=== PATIENT | male | born 1940 | race Caucasian/White ===

== ENCOUNTER 2017-10-04 00:50 | Emergency (ER) | payer OTHER ==
[2017-10-04] MEDS ORDERED: IOPAMIDOL (ISOVUE 370) 100 ML BTL IV ONE (00:57)
--- NOTE | 2017-10-04 01:07 | CPEKG ---
Heart Rate: 64 RR Interval: 938 P-R Interval: 336 QRSD Interval: 192 QT Interval: 532 QTC Interval: 549 P [place]: 0 QRS [place]: -68 T Wave [place]: 96 EKG Severity - ABNORMAL ECG - EKG Impression: VENTRICULAR-PACED RHYTHM Electronically Signed By: Brad Almaraz 04-Oct-2017 06:39:21
[2017-10-04 01:10] LABS: INR 1.13 (0.83-1.16); PROTIME(PATIENT) 14.7 SEC (12.0-15.0)
[2017-10-04 01:18] LABS: PLATELET COUNT 117 10^3/uL (150-400)
[2017-10-04] MEDS ORDERED: NS 1,000 ML IV ONE (01:44)
[2017-10-04 01:57] VITALS: RESP 16
--- NOTE | 2017-10-04 03:06 | EDPHY ---
H & P Stated Complaint: stroke alert / AMS Time Seen by Provider: 10/04/17 01:00 HPI/ROS: Chief Complaint: Altered mental status HPI: 76-year-old male who is a resident of [facility] facility. Patient called to the nursing staff at midnight to help going to the bathroom. They found him to be confused and had some difficulty walking to the bathroom. They called EMS. On EMS arrival they noted that he was a bit sleepy and there is some question of some facial droop. A stroke alert was called. Patient has a history of alcoholic liver disease, type 2 diabetes, chronic pain. He was last seen normal at 10:00 p.m. when he went to bed. He did get his nightly gabapentin. He does take daily tramadol but documentation indicates his last Tylenol was at 3:44 p.m.. No recent illness. No fevers or chills. No cough. On presentation the patient is awake and alert and answering questions and following all commands. He is currently complaining of feeling a bit dry in the mouth and a little sleepy. ROS: 10 point Review of Systems is negative except as noted in the HPI. Social History: No smoking, has a history of chronic alcohol use Family History: non-contributory Physical Exam: Gen: Awake, Alert, No Distress HEENT: Nose: no rhinorrhea Eyes: PERRLA, EOMI Mouth: Dry mucosa Neck: Supple, no JVD Chest: nontender, lungs clear to auscultation Heart: S1, S2 normal, no murmur Abd: Soft, non-tender, no guarding Back: no CVA tenderness, no midline tenderness Ext: no edema, non-tender Skin: no rash Neuro: See NIH stroke score - Personal History Current Tetanus/Diphtheria Vaccine: Yes Tetanus Vaccine Date: < 10 years - Medical/Surgical History Other PMH: AMS, lack of coordination, afib, tyre II diabetes, ETOH, demencia, copd, hypotyroidism, depression, PHTN, cirrohsis - Social History Smoking Status: Unknown if ever smoked Constitutional: Initial Vital Signs Temperature (C) 36.2 C 10/04/17 00:50 Heart Rate 84 10/04/17 00:50 Respiratory Rate 18 10/04/17 00:50 Blood Pressure 136/96 H 10/04/17 00:50 O2 Sat (%) 92 10/04/17 00:50 O2 Delivery Mode Room Air Allergies/Adverse Reactions: No Known Allergies Allergy (Verified 10/04/17 01:03) Home Medications: Medication Instructions Recorded Albuterol Hfa Anes Only 10/04/17 Aspirin 81mg (*) 10/04/17 Bisacodyl 10/04/17 Colace 10/04/17 Flovent Diskus 10/04/17 Fluoxetine HCl [Rapiflux] 10/04/17 Gabapentin 10/04/17 IMODIUM A-D 10/04/17 Lasix 10/04/17 Levothyroxine 10/04/17 Metformin HCl 10/04/17 Metoprolol Tartrate 10/04/17 Milk of Magnesia 10/04/17 Tamsulosin HCl 10/04/17 traMADol 10/04/17 Medical Decision Making - Diagnostics Imaging Results: CT scan is negative for acute intracranial pathology per Dr. Abdullahi. Chest x-ray is negative per my interpretation. Imaging: Discussed imaging studies w/ welder gas tungsten arc Radiologist ED Course/Re-evaluation: 76-year-old male from a [place] [facility] arrived as a stroke alert. Stroke alert was stood down after my initial evaluation and he had an NIH stroke score of 0. Patient is a little dehydrated with dry mucosa. He is answering questions at appropriate. Will work him up for altered mental status source and reassess. Workup is negative. CT scan of brain is negative. Urinalysis is normal. Blood work is entirely normal. Ammonia levels undetectable. Patient is sleepy but this is appropriate at 3 o'clock in the morning. He is arousable and appropriate. He is ambulating with assistance in quite unsteady on his feet. Will discuss with [place] [facility] regarding his baseline. Have discussed with the nurse at [facility]. She states that the patient by description is currently at his baseline. He normally ambulates with a walker and is usually quite unsteady. Patient is without complaint. Workup is negative. Will discharge back to [facility] with instructions return for any concerns. - Data Points Laboratory Results: Laboratory Results 10/04/17 00:50 10/04/17 00:50 10/04/17 10/04/17 10/04/17 02:20 01:45 00:50 WBC RBC Hgb POC Hgb Hct POC Hct MCV MCH MCHC RDW Plt Count MPV Neut % (Auto) Lymph % (Auto) [place] % (Auto) Eos % (Auto) Baso % (Auto) Nucleat RBC Rel Count Absolute Neuts (auto) Absolute Lymphs (auto) Absolute Monos (auto) Absolute Eos (auto) Absolute Basos (auto) Absolute Nucleated RBC Immature Gran % Immature Gran # PT INR APTT POC Sodium Sodium POC Potassium Potassium POC Chloride Chloride Carbon Dioxide Anion Gap POC BUN BUN Creatinine POC Creatinine Estimated GFR Glucose POC Glucose Calcium Total Bilirubin 0.6 mg/dL mg/dL (0.1-1.4) Conjugated Bilirubin 0.4 mg/dL mg/dL (0.0-0.5) Unconjugated Bilirubin 0.2 mg/dL mg/dL (0.0-1.1) AST 28 IU/L IU/L (17-59) ALT 48 IU/L IU/L (21-72) Alkaline Phosphatase 66 IU/L IU/L (38-126) Ammonia < 9.0 uMOL/L L uMOL/L (9.0-30.0) Troponin I Total Protein 7.1 g/dL g/dL (6.3-8.2) Albumin 4.0 g/dL g/dL (3.5-5.0) Urine Color PALE YELLOW Urine Appearance CLEAR Urine pH 7.0 (5.0-7.5) Ur Specific [place] 1.002 (1.002-1.030) Urine Protein NEGATIVE (NEGATIVE) Urine Ketones NEGATIVE (NEGATIVE) Urine Blood NEGATIVE (NEGATIVE) Urine Nitrate NEGATIVE (NEGATIVE) Urine Bilirubin NEGATIVE (NEGATIVE) Urine Urobilinogen NEGATIVE EU EU (0.2-1.0) Ur Leukocyte Esterase NEGATIVE (NEGATIVE) Urine Glucose NEGATIVE (NEGATIVE) Urine Opiates Screen NEGATIVE (NEGATIVE) Urine Barbiturates NEGATIVE (NEGATIVE) Ur Phencyclidine Scrn NEGATIVE (NEGATIVE) Ur Amphetamine Screen NEGATIVE (NEGATIVE) U Benzodiazepines Scrn NEGATIVE (NEGATIVE) Urine Cocaine Screen NEGATIVE (NEGATIVE) U Marijuana (THC) Screen NEGATIVE (NEGATIVE) 10/04/17 10/04/17 10/04/17 00:50 00:50 00:50 WBC 5.98 10^3/uL 10^3/uL (3.80-9.50) RBC 4.89 10^6/uL 10^6/uL (4.40-6.38) Hgb 14.9 g/dL g/dL (13.7-17.5) POC Hgb Hct 43.9 % % (40.0-51.0) POC Hct MCV 89.8 fL fL (81.5-99.8) MCH 30.5 pg pg (27.9-34.1) MCHC 33.9 g/dL g/dL (32.4-36.7) RDW 15.0 % % (11.5-15.2) Plt Count 117 10^3/uL L 10^3/uL (150-400) MPV 9.2 fL fL (8.7-11.7) Neut % (Auto) 56.6 % % (39.3-74.2) Lymph % (Auto) 23.7 % % (15.0-45.0) [place] % (Auto) 10.2 % % (4.5-13.0) Eos % (Auto) 7.9 % H % (0.6-7.6) Baso % (Auto) 0.3 % % (0.3-1.7) Nucleat RBC Rel Count 0.0 % % (0.0-0.2) Absolute Neuts (auto) 3.38 10^3/uL 10^3/uL (1.70-6.50) Absolute Lymphs (auto) 1.42 10^3/uL 10^3/uL (1.00-3.00) Absolute Monos (auto) 0.61 10^3/uL 10^3/uL (0.30-0.80) Absolute Eos (auto) 0.47 10^3/uL H 10^3/uL (0.03-0.40) Absolute Basos (auto) 0.02 10^3/uL 10^3/uL (0.02-0.10) Absolute Nucleated RBC 0.00 10^3/uL 10^3/uL (0-0.01) Immature Gran % 1.3 % H % (0.0-1.1) Immature Gran # 0.08 10^3/uL 10^3/uL (0.00-0.10) PT 14.7 SEC SEC (12.0-15.0) INR 1.13 (0.83-1.16) APTT 27.5 SEC SEC (23.0-38.0) POC Sodium Sodium 148 mEq/L H mEq/L (135-145) POC Potassium Potassium 3.6 mEq/L mEq/L (3.5-5.2) POC Chloride Chloride 108 mEq/L mEq/L (97-110) Carbon Dioxide 27 mEq/l mEq/l (22-31) Anion Gap 13 mEq/L mEq/L (8-16) POC BUN BUN 15 mg/dL mg/dL (7-23) Creatinine 0.9 mg/dL mg/dL (0.7-1.3) POC Creatinine Estimated GFR > 60 Glucose 93 mg/dL mg/dL (70-100) POC Glucose Calcium 9.1 mg/dL mg/dL (8.5-10.4) Total Bilirubin Conjugated Bilirubin Unconjugated Bilirubin AST ALT Alkaline Phosphatase Ammonia Troponin I < 0.012 ng/mL ng/mL (0.000-0.034) Total Protein Albumin Urine Color Urine Appearance Urine pH Ur Specific [place] Urine Protein Urine Ketones Urine Blood Urine Nitrate Urine Bilirubin Urine Urobilinogen Ur Leukocyte Esterase Urine Glucose Urine Opiates Screen Urine Barbiturates Ur Phencyclidine Scrn Ur Amphetamine Screen U Benzodiazepines Scrn Urine Cocaine Screen U Marijuana (THC) Screen 10/04/17 00:47 WBC RBC Hgb POC Hgb 13.9 gm/dL gm/dL (13.7-17.5) Hct POC Hct 41 % % (40-51) MCV MCH MCHC RDW Plt Count MPV Neut % (Auto) Lymph % (Auto) [place] % (Auto) Eos % (Auto) Baso % (Auto) Nucleat RBC Rel Count Absolute Neuts (auto) Absolute Lymphs (auto) Absolute Monos (auto) Absolute Eos (auto) Absolute Basos (auto) Absolute Nucleated RBC Immature Gran % Immature Gran # PT INR APTT POC Sodium 147 mEq/L H mEq/L (135-145) Sodium POC Potassium 3.5 mEq/L mEq/L (3.3-5.0) Potassium POC Chloride 106 mEq/L mEq/L (97-110) Chloride Carbon Dioxide Anion Gap POC BUN 15 mg/dL mg/dL (7-23) BUN Creatinine POC Creatinine 1.0 mg/dL mg/dL (0.7-1.3) Estimated GFR Glucose POC Glucose 95 mg/dL mg/dL (70-100) Calcium Total Bilirubin Conjugated Bilirubin Unconjugated Bilirubin AST ALT Alkaline Phosphatase Ammonia Troponin I Total Protein Albumin Urine Color Urine Appearance Urine pH Ur Specific [place] Urine Protein Urine Ketones Urine Blood Urine Nitrate Urine Bilirubin Urine Urobilinogen Ur Leukocyte Esterase Urine Glucose Urine Opiates Screen Urine Barbiturates Ur Phencyclidine Scrn Ur Amphetamine Screen U Benzodiazepines Scrn Urine Cocaine Screen U Marijuana (THC) Screen Medications Given: Discontinued Medications Sodium Chloride (Ns) 1,000 mls @ 0 mls/hr IV ONCE ONE; Wide Open PRN Reason: Protocol Stop: 10/04/17 01:45 Last Admin: 10/04/17 01:47 Dose: 1,000 mls Point of Care Test Results: 10/04/17 00:47 POC Sodium 147 H POC Potassium 3.5 POC Chloride 106 POC BUN 15 POC Creatinine 1.0 POC Glucose 95 Departure - Departure Disposition: Home, Routine, Self-Care Clinical Impression: Dehydration Condition: Good Instructions: Dehydration (ED) Additional Instructions: Follow up with primary care physician in 2-3 days for further evaluation. Return to the emergency department for shortness of breath, chest pain, fevers, chills, weakness, or any other concerns. Referrals: Patient,NotPresent [Primary Care Provider] - As per Instructions NIH Stroke Scale Date of Exam: 10/04/17 Time of Exam: 00:50 Level of Consciousness: Alert LOC Questions: Answers Both LOC Commands: Performs Both Correctly Best Gaze: Normal Visual: No Visual Loss Facial Palsy: Normal Motor Arm-Left: No Drift Motor Arm-Right: No Drift Motor Leg-Left: No Drift Motor Leg-Right: No Drift Limb Ataxis: Absent Sensory: Normal Best Language: No Aphasia Dysarthria: Normal Extinction and Inattention (Neglect): No Abnormality NIH Scale Score: 0
[2017-10-04 04:35] VITALS: BP 130/67; PULSE 64; TEMP 97.9; O2SAT 96
== END 2017-10-04 04:36 | disposition home or self-care (01) ==
DX: R41.82 Altered mental status, unspecified (principal); E86.0 Dehydration; E11.9 Type 2 diabetes mellitus without complications; J44.9 Chronic obstructive pulmonary disease, unspecified; Z79.82 Long term (current) use of aspirin
CPT/HCPCS: 80305; 82947-QW; Q9967

== ENCOUNTER 2017-11-20 13:50 | Emergency (ER) | payer OTHER, MEDICAID ==
--- NOTE | 2017-11-20 14:09 | EDPHY ---
H & P Time Seen by Provider: 11/20/17 14:09 HPI/ROS: Chief complaint. Left eye blurry HPI. 76-year-old male here by EMS from [facility]. Patient tells me sudden on set blurry and fuzzy vision with his left eye 45 min ago. No pain. No trauma. No change in vision with his right eye which he says is always bad. No redness, injury, drainage from the eye. No headache. No chest discomfort or shortness of breath. No abdominal pain. No focal weakness or paresthesias. No previous eye surgery. ROS Constitutional. no fever/chills, no weakness Eyes. Left eye blurry ENT. no sore throat, no nasal drainage Cardiovascular. no chest pain Respiratory. no shortness of breath, no cough Abdominal. no abdominal pain, no nausea/vomiting, no diarrhea . no problems urinating MS. no calf pain/swelling, no neck/back pain, no joint pain Skin. no rash Lymph. no swollen glands Neuro. no headache, no dizziness, no difficulty walking or with speech Past Medical/Surgical History: Altered mental status, lack of coordination, atrial fibrillation, type 2 diabetes, alcoholism, dementia, COPD, hypothyroid, depression, cirrhosis Social History: Single, nonsmoker, no alcohol Smoking Status: Unknown if ever smoked Physical Exam: General Appearance: Alert well-developed male mild distress vital signs are stable Eyes: Pupils equal and round no pallor or injection. Visual dia are normal with confrontation. Extraocular movements are intact. The eye appears normal ENT, Mouth: Mucous membranes are moist. Respiratory: There are no retractions, lungs are clear to auscultation. Cardiovascular: Regular rate and rhythm. Gastrointestinal: Abdomen is soft and nontender, no masses, bowel sounds normal. Neurological: Awake and alert, sensory and motor exams grossly normal. Speech is normal. Cranial nerves intact. No pronator drift. [id number] intact bilaterally Skin: Warm and dry, no rashes. Musculoskeletal: Neck is supple nontender. Extremities symmetrical, full range of motion. Psychiatric: Patient is oriented X 3, there is no agitation. Constitutional: Initial Vital Signs Temperature (C) 36.6 C 11/20/17 13:52 Heart Rate 84 11/20/17 13:52 Respiratory Rate 18 11/20/17 13:52 Blood Pressure 108/64 11/20/17 13:52 O2 Sat (%) 90 L 11/20/17 13:52 O2 Delivery Mode Room Air Allergies/Adverse Reactions: No Known Allergies Allergy (Verified 10/04/17 01:03) Home Medications: Medication Instructions Recorded Albuterol Hfa Anes Only 10/04/17 Aspirin 81mg (*) 10/04/17 Bisacodyl 10/04/17 Colace 10/04/17 Flovent Diskus 10/04/17 Fluoxetine HCl [Rapiflux] 10/04/17 Gabapentin 10/04/17 IMODIUM A-D 10/04/17 Lasix 10/04/17 Levothyroxine 10/04/17 Metformin HCl 10/04/17 Metoprolol Tartrate 10/04/17 Milk of Magnesia 10/04/17 Tamsulosin HCl 10/04/17 traMADol 10/04/17 Medical Decision Making - Diagnostics EKG Interpretation: EKG shows a paced rhythm. Left axis deviation. Interventricular conduction delay. No ST elevation or depression. Rate 59 Procedures: Visual acuities 20/70 bilaterally Slit-lamp exam by me with Alcaine and fluorescein drops reveals no abrasion or ulceration of the cornea. Anterior chamber appears normal. No evidence for foreign body. ED Course/Re-evaluation: Re-evaluation 3:20 p.m. Patient is stable. He and I discussed labs EKG visual acuity exam. We discussed treatment plan including criteria for return importance of follow-up and further evaluation. He expresses understanding I consulted discussed case with Dr. Wilkins, ophthalmology. He agrees with the workup. He recommends no further workup at this point and will see the patient in the office. Differential Diagnosis: I considered corneal abrasion, giant cell arteritis, neurologic etiology though this is an isolated finding and otherwise neurologically the patient is intact. Patient has a normal sed rate going against giant cell arteritis. He has got no claudication. His visual acuity is 20/70 bilaterally without corrective lenses. He has no eye pain. There is no evidence for corneal abrasion on slit- lamp exam. I also considered thromboembolic disease as the patient has a history of atrial fibrillation and not on anticoagulation however he is in a paced rhythm and is not in atrial fibrillation. It is possible that this is caused by cataract. - Data Points Laboratory Results: Laboratory Results 11/20/17 14:40 11/20/17 14:40 03/11/20/17 11/20/17 14:40 14:40 14:40 WBC 5.66 10^3/uL 10^3/uL (3.80-9.50) RBC 4.69 10^6/uL 10^6/uL (4.40-6.38) Hgb 14.7 g/dL g/dL (13.7-17.5) Hct 42.7 % % (40.0-51.0) MCV 91.0 fL fL (81.5-99.8) MCH 31.3 pg pg (27.9-34.1) MCHC 34.4 g/dL g/dL (32.4-36.7) RDW 14.6 % % (11.5-15.2) Plt Count 95 10^3/uL L 10^3/uL (150-400) MPV 9.0 fL fL (8.7-11.7) Neut % (Auto) 59.2 % % (39.3-74.2) Lymph % (Auto) 26.3 % % (15.0-45.0) [place] % (Auto) 10.2 % % (4.5-13.0) Eos % (Auto) 3.9 % % (0.6-7.6) Baso % (Auto) 0.2 % L % (0.3-1.7) Nucleat RBC Rel Count 0.0 % % (0.0-0.2) Absolute Neuts (auto) 3.35 10^3/uL 10^3/uL (1.70-6.50) Absolute Lymphs (auto) 1.49 10^3/uL 10^3/uL (1.00-3.00) Absolute Monos (auto) 0.58 10^3/uL 10^3/uL (0.30-0.80) Absolute Eos (auto) 0.22 10^3/uL 10^3/uL (0.03-0.40) Absolute Basos (auto) 0.01 10^3/uL L 10^3/uL (0.02-0.10) Absolute Nucleated RBC 0.00 10^3/uL 10^3/uL (0-0.01) Immature Gran % 0.2 % % (0.0-1.1) Immature Gran # 0.01 10^3/uL 10^3/uL (0.00-0.10) ESR 9 MM/HR MM/HR (0-20) PT 14.3 SEC SEC (12.0-15.0) INR 1.09 (0.83-1.16) APTT 28.3 SEC SEC (23.0-38.0) Sodium 144 mEq/L mEq/L (135-145) Potassium 3.8 mEq/L mEq/L (3.5-5.2) Chloride 104 mEq/L mEq/L (97-110) Carbon Dioxide 27 mEq/l mEq/l (22-31) Anion Gap 13 mEq/L mEq/L (8-16) BUN 14 mg/dL mg/dL (7-23) Creatinine 0.8 mg/dL mg/dL (0.7-1.3) Estimated GFR > 60 Glucose 114 mg/dL H mg/dL (70-100) Calcium 8.5 mg/dL mg/dL (8.5-10.4) Medications Given: Discontinued Medications Proparacaine HCl (Alcaine 0.5%) 1 drops OP EDNOW ONE Stop: 11/20/17 14:20 Last Admin: 11/20/17 14:55 Dose: 1 drop Departure - Departure Disposition: Home, Routine, Self-Care Clinical Impression: Change in vision Condition: Good Instructions: Blurred Vision (ED) Additional Instructions: You're workup today is normal. Because of blurred vision is not clear. I have spoken to Dr. Wilkins for ophthalmology who would like to see you in the office for further exam. Please call his office for follow-up appointment. Return sooner to the emergency department for worsening vision and other symptoms Referrals: Patient,NotPresent [Primary Care Provider] - As per Instructions Savage Wilkins MD [Medical Doctor] - 2-3 days, call for appt.
[2017-11-20] MEDS ORDERED: PROPARACAINE 0.5% 15 ML OPHT DROP OP ONE (14:19)
[2017-11-20] MEDS ORDERED: FLUORESCEIN SOD/BENOXINATE HCL 20 DROPS/ML OPHT.BTL ONE (14:37)
--- NOTE | 2017-11-20 14:45 | CPEKG ---
Heart Rate: 59 RR Interval: 1017 P-R Interval: 244 QRSD Interval: 192 QT Interval: 532 QTC Interval: 528 P [place]: 0 QRS [place]: -70 T Wave [place]: 98 EKG Severity - ABNORMAL ECG - EKG Impression: VENTRICULAR-PACED COMPLEXES Electronically Signed By: Jonathan Stein 20-Nov-2017 15:43:16
[2017-11-20 14:47] LABS: PLATELET COUNT 95 10^3/uL (150-400)
[2017-11-20 14:58] LABS: INR 1.09 (0.83-1.16); PROTIME(PATIENT) 14.3 SEC (12.0-15.0)
[2017-11-20 17:58] VITALS: BP 144/85
== END 2017-11-20 18:15 | disposition home or self-care (01) ==
LOC: EDUNIT# → EDBD
DX: H53.8 Other visual disturbances (principal); E11.9 Type 2 diabetes mellitus without complications; J44.9 Chronic obstructive pulmonary disease, unspecified; Z79.82 Long term (current) use of aspirin; Z79.84 Long term (current) use of oral hypoglycemic drugs